=== PATIENT | female | born 2005 | race Caucasian/White ===

== ENCOUNTER → 2024-04-10 11:03 | Outpatient (REF) | payer OTHER, SELFPAY ==
[2024-04-10 13:08] LABS: Rubella Positive
[2024-04-10 13:35] LABS: Hepatitis B Surface Antibody Negative
[2024-04-12 14:39] LABS: Quantiferon Mitogen minus NIL 9.95 IU/mL; Quantiferon NIL 0.05 IU/mL; Quantiferon TB Gold Plus Negative (Negative)
== END ==
LOC: OHS 11:03
PROVIDERS: ATTENDING PHYSICIAN Nurse Practitioner Family
DX: Z23 Encounter for immunization (principal)
CPT/HCPCS: 36415; 86480; 86706; 86735; 86762; 86765; 86787

== ENCOUNTER 2024-10-24 02:47 | Emergency (ER) | payer OTHER, SELFPAY ==
[2024-10-24 02:49] VITALS: BP 131/69
[2024-10-24 03:08] VITALS: BMI 53.3
--- NOTE | 2024-10-24 03:20 | ED.GENMED ---
History of Present Illness
General
Chief Complaint: Abdominal Pain
Source: patient
Exam Limitations: none
Time Seen by Provider: 10/24/24 03:04
Nursing documentation reviewed up to this point in time: agreed with
History of Present Illness
History of Present Illness:
19-year-old female with past medical history of obesity who presents to the emergency room for evaluation of abdominal pain. Patient reports symptoms have been on and off for about 2 weeks but tonight they were more severe which prompted ER visit.
She reports diffuse abdominal pain maximal in the epigastrium. She reports associated mid to low back pain. She says she has nausea but no vomiting. She does report diarrhea. She denies any fevers or chills. She denies any vaginal bleeding or
discharge. She denies any other complaints. Notably, patient is on Wegovy and she says dose was increased 2 weeks ago.
Review of Systems
Review of Systems
All Other Systems: ROS reviewed and negative except as documented in HPI and ROS
Constitutional: Denies fever
Respiratory: Denies trouble breathing
Cardiac: Denies chest pain
ABD/GI: Reports abdominal pain, nausea and diarrhea; Denies vomiting
: Denies frequency, flank pain or bleeding
Musculoskeletal: Reports back pain; Denies neck pain
Neurological: Denies dizzy or headache
Phy Exam
Physical Exam
Physical Exam:
General: Awake, alert, oriented x3; no acute distress
Head: Normocephalic, atraumatic
Eyes: Conjunctiva normal, sclera anicteric
Throat: Airway intact, handling secretions
Neck: Trachea midline, supple without meningismus
Lungs: Clear to auscultation bilaterally, no wheezing, rales, rhonchi
Heart: Regular rate and rhythm, no murmurs, gallops, or rubs
Abd: Soft, non distended, mildly tender in the epigastrium
Back: No CVA tenderness
Neuro: No gross deficits
Skin: no rash in area of concern
Extremities: Warm and well-perfused
Scores
Heart Failure Risk
Heart Failure Risk Score: Not Applicable
Heart Score for Chest Pain Patients
STEMI patient?: Not applicable
Withdrawal Assessment of Alcohol
Withdrawal Assessment Completed?: Not applicable
Course
Orders/Labs/Results
Orders:
Orders
10/24/24 03:04
Ondansetron Injectable [Zofran] 4 mg IV NOW STA
10/24/24 03:05
0.9% Sodium Chloride 1000 ml [Nss] 1,000 ml IV BOLUS
10/24/24 03:20
CT Abd/pelvis W Iv Cont Urgent
Comment:
Reason For Exam: donna umbilical abd pain, nausea
10/24/24 03:22
Urinalysis Reflex To Culture Urgent
Date Specimen was Collected: 10/24/24
Time Specimen was Collected: 03:45
Test Result ONCE
10/24/24 03:24
Complete Blood Count/With Diff Urgent
Comprehensive Metabolic Panel Urgent
HCG, Serum Qualitative Screen Urgent
Lipase Urgent
10/24/24 06:38
Amoxicillin 875 mg/Clav 125 mg [Augmentin 875 mg/125 mg] 1 tablet PO NOW STA
Abnormal Lab Results
10/24/24
03:24
Glucose 102 H mg/dl
(70-99)
10/24/24 03:24
10/24/24 03:24
Vital Signs
Initial and Last Documented VS:
Initial Vital Signs
Temp Pulse Resp BP Pulse Ox
37.3 C 89 18 131/69 96
10/24/24 02:49 10/24/24 02:49 10/24/24 02:49 10/24/24 02:49 10/24/24 02:49
Last Documented Vital Signs
Temp Pulse Resp BP Pulse Ox
37.3 C 89 18 121/64 96
10/24/24 02:49 10/24/24 02:49 10/24/24 02:49 10/24/24 05:23 10/24/24 02:49
Procedures
IV Access
Indication: Physician skill needed
Performed by:: Sam Chaney MD
Site:: left forearm
Gauge:: 20G
Ultrasound Guidance: Yes
MDM/Problems Addressed
Differential Diagnosis Includes:
Gastritis, pancreatitis, enteritis, medication adverse effect (Wegovy), cholelithiasis/cholecystitis
MDM/Problems Addressed:
19-year-old female presents for evaluation of abdominal pain with nausea and diarrhea for the past 2 weeks intermittently more severe tonight. Notably increased dose of Wegovy 2 weeks ago. Vitals and exam as above. Check labs including a CBC and
a CMP, lipase. Check CT abdomen pelvis. Check urinalysis and hCG. Will treat symptomatically. Reassess after the above.
Labs reviewed: CBC and CMP unremarkable, lipase normal, hCG negative. CT abdomen pelvis report from [facility] reviewed: Normal appendix, no bowel obstruction, no cholecystitis or pancreatitis. No kidney stones. There was a questionable
minimal diverticulitis along the sigmoid colon she is minimally tender in this area very low suspicion that this is a true diverticulitis and I suspect her symptoms are more likely due to Wegovy but will cover with antibiotics. I advised her to
discuss with her primary doctor prior to next dose of mobility to potentially lower dose. She is stable for discharge at this point in time she feels very comfortable with this plan. We spoke about return precautions and all questions were
answered.
Chronic conditions affecting care:
Obesity
*Radiology
Radiology exam reviewed: radiology read reviewed
*Pulse Oximetry
Patient hypoxic: no
*Critical Care Note
Total Time (30-74mins, 75-104mins- exclusive of procedures): Not Applicable
Data Reviewed
Source: patient and family
ED Attending Note
-
Portions of this chart may have been created with voice recognition software.� Occasional wrong word or��sound alike� substitutions may have occurred due to the inherent limitations of voice recognition software.
Discharge Plan
Departure
Patient Disposition: Home (Routine Discharge)
Date of Disposition: 10/24/24
Time of Disposition: 06:38
Patient with high blood pressure during this ER visit?: No
Discharge Problem:
Abdominal pain, Diverticulitis
Instructions: Diverticulitis (DC), Abdominal Pain
Prescriptions:
New
amoxicillin-pot clavulanate 875-125 mg tablet
1 tab PO BID Qty: 14 0RF
Referrals:
Franc Rivers DO [Family Provider] - Follow up in 2-3 days
Activity Restrictions/Additional Instructions:
Thank you for visiting the Emergency Department at [facility].
1. Please schedule a follow up appointment as directed. Call first thing tomorrow morning to make an appointment.
2. If indicated, please take your medications as instructed and indicated on discharge paperwork.
3. If any of your symptoms do not improve, or persist, or become more severe within 6-12 hours, please return to the emergency department for further care.
4. Please return to the emergency department if you develop a headache, neck pain/stiffness, fever greater than 100.4F, chest pain, shortness of breath, persistent nausea, vomiting, slurred speech, difficulty walking, numbness/tingling, weakness,
signs of infection or any other symptoms that are worrisome to you.
Please call [phone] if you have any questions.
Interventions
Interventions:
*Risk Screen - Suicide Last Done: 10/24/24 02:49
*General Assessment Last Done: 10/24/24 02:49
*Neglect/Abuse Screening Last Done: 10/24/24 02:49
ED- Fall Risk Assessment Last Done: 10/24/24 02:49
*ED COVID-19 Vaccine History Last Done: 10/24/24 02:49
VW-Spetgi-Rpgwumgfts Assessment Last Done: 01/18/25 03:46
Discharge Date and Time
Print Language: SALVADOREAN
[2024-10-24 03:33] LABS: % Basophils 0.4 % (0-2); % Eosinophils 1.6 % (0-6); % Immature Granulocytes 0.2 % (0-0.5); % Lymphocytes 27.8 % (20.5-51.1); Absolute Eosinophils 0.2 10^3/uL (0-0.7); Absolute Lymphocytes 2.5 10^3/uL (1.2-3.4); Absolute Monocytes 0.6 10^3/uL (0.1-0.6); Absolute Neutrophils 5.8 10^3/uL (1.4-6.5); Hematocrit 38.2 % (37.0-47.0); Hemoglobin 13.3 g/dL (12.0-16.0); Mean Corp Hgb Conc. 34.8 g/dL (33.0-37.0); Mean Corpuscular Hgb 30.4 pg (27.0-31.0); Mean Corpuscular Volume 87.4 fL (81.0-99.0); Mean Platelet Volume 9.3 fL (7.4-10.4); Nucleated Red Blood Cells % 0 %; Platelet Count 216 10^3/uL (130-400); Red Blood Cell Count 4.37 10^6/uL (4.20-5.40); Red Cell Dist. Width 12.8 % (11.5-14.5); White Blood Cell Count 9.1 10^3/uL (4.8-10.8)
[2024-10-24] MEDS: ZOFRAN 4 MG IV (03:39)
[2024-10-24] MEDS: NSS 1000 IV (03:39)
[2024-10-24 04:11] LABS: HCG, Serum Qualitative Screen Negative
[2024-10-24 04:19] LABS: ALT (SGPT) 25 U/L (0-35); AST (SGOT) 23 U/L (14-36); Albumin 4.5 g/dl (3.5-5.0); Alkaline Phosphatase 72 U/L (38-126); Blood Urea Nitrogen 16 mg/dl (7-17); Calcium 8.9 mg/dl (8.4-10.2); Carbon Dioxide 25 mmol/L (22-30); Chloride 103 mmol/L (98-107); Estimated Creatinine Clearance > 125 ml/min; Glucose 102 mg/dl (70-99); Lipase 102 U/L (23-300); Sodium 139 mmol/L (135-145); Total Bilirubin 0.4 mg/dl (0.2-1.3); Total Protein 6.7 g/dl (6.3-8.2); eGFR > 60.00
[2024-10-24 04:35] LABS: Potassium 3.7 mmol/L (3.5-5.1)
--- NOTE | 2024-10-24 05:17 | EDRN ---
Pt.'s IV infiltrated at CT scan, per blend technician, contrast administration immediately stopped, pt. w/ mild swelling to site, ice pack applied, extremity elevated. Second RN attempted u/s guided IV access on other extremity, unsuccessful. ED attending
made aware, will attempt IV access.
[2024-10-24 05:23] VITALS: BP 121/64
[2024-10-24] MEDS: AUGMENTIN 875 MG/125 MG 1 TABLET PO (07:20)
== END 2024-10-24 07:26 | disposition home or self-care (01) ==
LOC: EMR 02:47
PROVIDERS: EMERGENCY PHYSICIAN Emergency Medicine; FAMILY PHYSICIAN Family Medicine
DX: K57.32 Diverticulitis of large intestine without perforation or abscess without bleeding (principal); R10.13 Epigastric pain; M54.50 Low back pain, unspecified; M54.6 Pain in thoracic spine; R11.0 Nausea; R19.7 Diarrhea, unspecified; E66.9 Obesity, unspecified; Z91.018 Allergy to other foods
CPT/HCPCS: 99284; 96361; 96374; 74177; 80053; 83690; 84703; 85025; Q9967

== ENCOUNTER 2025-01-04 14:56 | Emergency (ER) | payer SELFPAY ==
[2025-01-04 15:09] VITALS: BP 147/80
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
[2025-01-04] MEDS: TYLENOL 1000 MG PO (15:40)
[2025-01-04] MEDS: MOTRIN 600 MG PO (15:40)
== END 2025-01-04 18:04 | disposition home or self-care (01) ==
LOC: EMR 14:56
PROVIDERS: EMERGENCY PHYSICIAN Emergency Medicine; FAMILY PHYSICIAN Family Medicine
DX: S39.012A Strain of muscle, fascia and tendon of lower back, initial encounter (principal); M54.6 Pain in thoracic spine; V49.40XA Driver injured in collision with unspecified motor vehicles in traffic accident, initial encounter; Y92.410 Unspecified street and highway as the place of occurrence of the external cause; Z91.018 Allergy to other foods
CPT/HCPCS: 99283; 72072; 72110